=== PATIENT | female | born 1965 | race Caucasian/White ===

== ENCOUNTER 2023-11-07 10:48 | Outpatient (CLI) | payer MEDICARE, MEDICAID ==
[~2023-11-07 10:48] MED LIST: ACET-3068 PO; ALEN70TA60 PO; BACL20TA PO; BISA10SU60 RC; FLUO20CA39 PO; IBUP-1985 PO; LACT10SO3 PO; MAGN296S89 PO; OXYB15TA3 PO; TRAZ-251 PO
== END 2023-11-07 23:59 | disposition home or self-care (01) ==
LOC: RAD 10:48
DX: S12.9XXD Fracture of neck, unspecified, subsequent encounter (principal); X58.XXXD Exposure to other specified factors, subsequent encounter; M41.82 Other forms of scoliosis, cervical region; M81.8 Other osteoporosis without current pathological fracture; M43.22 Fusion of spine, cervical region
CPT/HCPCS: 72050

== ENCOUNTER 2024-02-13 10:49 | Outpatient (CLI) | payer MEDICARE, MEDICAID | END 2024-02-13 23:59 | disposition home or self-care (01) | LOC: CARD DIAG 10:49 | PROVIDERS: ATTEND Internal Medicine Interventional Cardiology | DX: G82.51 Quadriplegia, C1-C4 complete (principal); I10 Essential (primary) hypertension; R00.2 Palpitations; E87.1 Hypo-osmolality and hyponatremia; H93.A9 Pulsatile tinnitus, unspecified ear | CPT/HCPCS: 93306 ==

== ENCOUNTER 2024-10-23 11:03 | Outpatient (CLI) | payer MEDICARE, MEDICAID ==
[~2024-10-23 11:03] MED LIST changes: +LACT-373 PO; -LACT10SO3 PO
--- NOTE | 2024-10-23 21:23 | VASCULAR REPORT ---
PROCEDURE: [facility] 10/23/2024 11:36 AM INDICATION: Hypertension and palpitations. COMPARISON: None TECHNIQUE: Real-time grayscale and color Doppler images of the neck arteries were obtained with spect ral analysis performed. FINDINGS: RIGHT: No significant atherosclerotic plaque identified in the carotid. Normal spectral waveforms are seen. ICA peak systolic velocity: 83 cm/s ICA end-diastolic velocity: 45 cm/s ICA/CCA ratios: 1.2 LEFT: No significant atherosclerotic plaque identified in the carotid. Normal spectral waveforms are seen. ICA peak systolic velocity: 1.1 cm/s ICA end-diastolic velocity: 50 cm/s ICA/CCA ratios: 1.1 VERTEBRAL ARTERIES: Normal antegrade flow is seen in the right vertebral artery with normal spectral waveform noted. The left vertebral artery is not identified. IMPRESSION: 1. No hemodynamically significant carotid artery stenosis identified bilaterally. 2. The left vertebral artery is not identified. The right vertebral artery is patent. Reference: Radiology 2003; [id number] Normal ICA PSV is <125 cm/sec and no plaque or intimal thickening is visible sonographically addition al criteria include ICA/CCA PSV ratio <2.0 and ICA EDV <40 cm/sec <50% ICA stenosis ICA PSV is <125 cm/sec and plaque or intimal thickening is visible sonographically additional criteria include ICA/CCA PSV ratio <2.0 and ICA EDV <40 cm/sec 50-69% ICA stenosis ICA PSV is 125-230 cm/sec and plaque is visible sonographically additional criter ia include ICA/CCA PSV ratio of 2.0-4.0 and ICA EDV of 40-100 cm/sec 70% ICA stenosis but less than near occlusion ICA PSV is >230 cm/sec and visible plaque and luminal narrowing are seen at ramos-scale and color Doppler ultrasound (the higher the Doppler parameters lie above the threshold of 230 cm/sec, the greater the likelihood of severe disease) additional criteria include ICA/CCA PSV ratio >4 and ICA EDV >100 cm/sec
== END 2024-10-23 23:59 | disposition home or self-care (01) ==
LOC: VAS 11:03
PROVIDERS: ATTEND Internal Medicine Interventional Cardiology
DX: G82.51 Quadriplegia, C1-C4 complete (principal); I10 Essential (primary) hypertension; R00.2 Palpitations; E87.1 Hypo-osmolality and hyponatremia; H93.A9 Pulsatile tinnitus, unspecified ear
CPT/HCPCS: 93880